=== PATIENT | female | born 1965 ===

== ENCOUNTER → 2016-07-03 | Outpatient (CLI) | payer OTHER ==
--- NOTE | 2016-07-03 11:21 | KCIC ---
MR CERVICAL SPINE HISTORY:Reason For StudyReason: CERVICAL RADICULOPATHY / Spl. Instructions: / History: Left arm pain in forearm, tingling in left 3rd digit. Several months. Technique: Sagittal T2, sagittal STIR, sagittal T1, and axial gradient echo imaging was obtained of the cervical spine. FINDINGS: Alignment is within normal limits. Vertebral body heights are maintained. Bone marrow signal is normal. The cord is normal in caliber with no signal abnormality identified. Soft tissues of the neck are within normal limits. At C2-3 there is no spinal stenosis. C3-4 there is no spinal stenosis. C4-C5 there is no spinal stenosis. At C5-6 there is a broad-based disc osteophyte complex which narrows the ventral subarachnoid space but does not impinge upon the cord. At C6-7 there is no spinal stenosis. At C7-T1 there is no spinal stenosis. Impression: - Mild degenerative disc disease greatest at C5-6 where there is a broad-based disc osteophyte complex although this does not cause mass effect upon the cord. Electronically signed by: Hasmukh Pastrana (Jul 03, 2016 11:20:04)
== END | disposition home or self-care (01) ==
LOC: KCIC MRI 09:14
PROVIDERS: ATTEND Orthopaedic Surgery
DX: M50.322 Other cervical disc degeneration at C5-C6 level (principal); M25.78 Osteophyte, vertebrae
CPT/HCPCS: 72141